=== PATIENT | male | born 1985 | race Caucasian/White ===

== ENCOUNTER 2016-07-09 16:18 | Emergency (ER) | payer MEDICAID ==
[2016-07-09 16:33] VITALS: BP 130/70; TEMP 97.5
[2016-07-09 17:10] VITALS: PULSE 106; RESP 18; O2SAT 96
--- NOTE | 2016-07-09 17:18 | EDPHY ---
H & P Stated Complaint: Asthma HPI/ROS: Chief complaint: Albuterol refill History of present illness: This is a 30-year-old male with a history of asthma who presents to the emergency department requesting a refill of his albuterol. He is currently out of his albuterol. He reports over the last few days he has noted an increase in difficulty breathing. He denies precipitating factors. He denies alleviating factors. He denies other associated signs or symptoms including no fevers, cough or other cold symptoms, no pain or swelling in the legs. He has been hospitalized in the past and needed what sounds like either BiPAP or CPAP for his asthma but never been intubated. - Personal History Current Tetanus/Diphtheria Vaccine: Unsure Current Tetanus Diphtheria and Acellular Pertussis (TDAP): Unsure - Medical/Surgical History Hx Asthma: Yes Hx Chronic Respiratory Disease: No Hx Diabetes: No Hx Cardiac Disease: No Hx Renal Disease: No Hx Cirrhosis: No Hx Alcoholism: No Hx HIV/AIDS: No Hx Splenectomy or Spleen Trauma: No - Social History Smoking Status: Current some day smoker - Physical Exam Exam: General Appearance: Alert and no distress. Eyes: Pupils equal and round no injection. Respiratory: Lung sounds globally diminished with occasional wheezing noted. No rhonchi or rales. Cardiac: regular rate and rhythm Gastrointestinal: Abdomen is soft and non tender, no masses, bowel sounds normal. Musculoskeletal: Neck is supple and non tender. Extremities have full range of motion and are non tender. Skin: No rashes or lesions. Constitutional: Initial Vital Signs Temperature (C) 36.4 C 07/09/16 16:29 Heart Rate 116 H 07/09/16 16:29 Respiratory Rate 16 07/09/16 16:29 Blood Pressure 130/70 H 07/09/16 16:29 O2 Sat (%) 94 07/09/16 16:29 O2 Delivery Mode Room Air Allergies/Adverse Reactions: No Known Allergies Allergy (Unverified 07/09/16 17:27) Home Medications: Medication Instructions Recorded ALBUTEROL SULFATE 07/09/16 Albuterol [Ventolin Hfa Inhaler] 200 puffs IH Q4-6PRN PRN #1 mdi 07/09/16 predniSONE 60 mg PO DAILY 3 Days 07/09/16 Medical Decision Making ED Course/Re-evaluation: Patient seen under the supervision of my primary supervising physician Dr. Melissa Austin. Patient with a history of asthma presents with worsening breathing requesting a refill of his albuterol. On presentation patient is nontoxic, there is no tachypnea or hypoxia. However lung sounds are globally diminished with wheezing. He is offered treatment with a nebulizer evaluation but has declined. He is just requesting medication. Patient is given an albuterol inhaler prescription. Further he will be given a burst of prednisone for likely exacerbation. Home care is discussed. He is referred to primary care doctor for continued care. Strict return precautions given. Patient voiced understanding and agreement with plan. Departure - Departure Disposition: Home, Routine, Self-Care Clinical Impression: Exacerbation of asthma Condition: Good Instructions: Asthma (ED) Additional Instructions: Follow-up with the primary care doctor for recheck You were offered treatment in the emergency department, you declined If symptoms worsen or new symptoms develop return to the emergency department immediately for recheck Referrals: [facility],. [Clinic] - As per Instructions Prescriptions: Albuterol [Ventolin Hfa Inhaler] 200 puffs IH Q4-6PRN PRN #1 mdi PRN Reason: Short Of Breath/Dyspnea predniSONE 60 mg PO DAILY 3 Days
== END 2016-07-09 17:34 | disposition home or self-care (01) ==
DX: J45.901 Unspecified asthma with (acute) exacerbation (principal); F17.200 Nicotine dependence, unspecified, uncomplicated